=== PATIENT | male | born 1980 | race American Indian/Alaskan Native ===

== ENCOUNTER 2018-05-30 00:47 | Emergency (ER) | payer SELFPAY ==
[2018-05-30 00:58] VITALS: O2SAT 95
[2018-05-30] MEDS ORDERED: Albuterol-Ipratrop 3 mg / 0.5 (3 ml) UD ONE ×4 (01:02→01:46)
[2018-05-30] MEDS ORDERED: Albuterol-Ipratrop 3 mg / 0.5 (3 ml) UD INH STA (01:07)
--- NOTE | 2018-05-30 02:30 | C.PDOC ---
History Of Present Illness 38 year old male with PMHx of asthma presents to the ED c/o non productive cough for the past week. Patient reports now SOB and chest tightness. Patient states he has not had asthma exacerbation or recurrence in the past few years. Patient does not have inhaler to use at home. Patient denies fever, chills, palpitations, recent travel, sick contacts. Time Seen by Provider: 05/30/18 00:56 Chief Complaint (Nursing): Shortness Of Breath History Per: Patient History/Exam Limitations: no limitations Onset/Duration Of Symptoms: Days Current Symptoms Are (Timing): Still Present Initiating Event: Upper Respiratory Illness Quality: Tightness Exacerbating Factor(s): Coughing Current Respiratory Medications: See Home Med List Recent travel outside of the [place]: No Additional History Per: Patient Past Medical History Reviewed: Historical Data, Nursing Documentation, Vital Signs Vital Signs: Last Vital Signs Temp 98.5 F 05/30/18 00:55 Pulse 96 H 05/30/18 00:55 Resp 17 05/30/18 01:09 BP 132/83 05/30/18 00:55 Pulse Ox 95 05/30/18 00:55 - Medical History PMH: Asthma Surgical History: No Surg Hx Family History: States: Unknown Family Hx - Social History Hx Alcohol Use: No Hx Substance Use: No Review Of Systems Constitutional: Negative for: Fever, Chills Cardiovascular: Positive for: Chest Pain (tightness) Respiratory: Positive for: Cough, Shortness of Breath. Negative for: Sputum, Wheezing Gastrointestinal: Negative for: Nausea, Vomiting, Abdominal Pain Skin: Negative for: Rash Neurological: Negative for: Weakness, Numbness, Headache, Dizziness Physical Exam - Physical Exam Appears: Non-toxic, No Acute Distress Skin: Normal Color, Warm, Dry Head: Atraumatic, Normacephalic Eye(s): bilateral: Normal Inspection Neck: Normal ROM, Supple Chest: Symmetrical Cardiovascular: Rhythm Regular Respiratory: No Rales, No Rhonchi, Wheezing (diffuse expiratory), Other (decreased air entry, no retractions ) Gastrointestinal/Abdominal: Soft, No Tenderness, No Guarding, No Rebound Extremity: Normal ROM, No Tenderness, No Swelling Neurological/Psych: Oriented x3, Normal Speech, Normal Cognition Gait: Steady ED Course And Treatment ECG: Interpreted By Me, Viewed By Me ECG Rhythm: Sinus Rhythm ECG Interpretation: Normal Rate From EC O2 Sat by Pulse Oximetry: 95 (ON RA) Pulse Ox Interpretation: Normal - Radiology CXR: Interpreted by Me, Viewed By Me CXR Interpretation: Yes: No Acute Disease. No: Infiltrates Progress Note: Plan: - CXR. - Albuterol nebulizer x 3. - Prednisone 60 mg PO. Imaging results discussed with patient. Patient improved after treatments, no lomger wheezing and breathing without difficulty. Patient also requesting medication refill for eczema, given to patient. Patient advised to follow up with clinic. Disposition - Disposition Referrals: [facility] [Outside] Disposition: HOME/ ROUTINE Disposition Time: 02:27 Condition: STABLE Additional Instructions: Use inhaler as directed Take prednisone as prescribed Follow up in clinic Return to ER if worse Prescriptions: Albuterol HFA [Ventolin HFA 90 mcg/actuation (8 g)] 2 puff IH [id number] #1 inhaler Mometasone 0.1% [Elocon Ointment] 1 applic TP BID #60 g predniSONE [Prednisone] 40 mg PO DAILY #10 tab Instructions: Asthma, Adult (DC) Forms: BRIKA (Tunisian) - Clinical Impression Clinical Impression: Asthma exacerbation, Eczema - 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 - Scribe Statement The provider has reviewed the documentation as recorded by the Scribe Darnell Freeman All medical record entries made by the Scribe were at my direction and personally dictated by me. I have reviewed the chart and agree that the record accurately reflects my personal performance of the history, physical exam, medical decision making, and the department course for this patient. I have also personally directed, reviewed, and agree with the discharge instructions and disposition.
[2018-05-30 02:42] VITALS: BP 129/71; PULSE 99; RESP 20; TEMP 98.1
--- NOTE | 2018-05-30 09:48 | RAD ---
Date of service: 05/30/2018 HISTORY: Shortness of breath and wheezing COMPARISON: No prior. TECHNIQUE: Chest PA and lateral FINDINGS: LINES AND TUBES: None. LUNG AND PLEURA: The lungs are well inflated and clear. No pleural effusion or pneumothorax. HEART AND MEDIASTINUM: The heart is not enlarged. No aortic atherosclerotic calcifications present. The hilar and mediastinal contours are within normal limits. SKELETAL STRUCTURES: The bony structures are within normal limits for the patient's age. VISUALIZED UPPER ABDOMEN: Normal. OTHER FINDINGS: None. IMPRESSION: No active pulmonary disease.
--- NOTE | 2018-05-31 11:27 | CARD ---
APPROVED REPORT Date of service: 05/30/2018 EKG Measurement Heart [id number] <Conclusion> Normal sinus rhythm Normal ECG
== END 2018-05-30 02:42 | disposition home or self-care (01) ==
LOC: C.ER 00:47
DX: J45.901 Unspecified asthma with (acute) exacerbation (principal); L30.9 Dermatitis, unspecified